=== PATIENT | male | born 1935 | race Caucasian/White ===

== ENCOUNTER 2023-12-02 01:29 | Inpatient (IN) | payer BC, MEDICARE ==
[~2023-12-02] VITALS: Ht 185.4 cm; Wt 111.1 kg
[2023-12-02] VITALS (8 sets, daily range): BP systolic 128–151; BP diastolic 73–102; TEMP 98.2–98.6; O2SAT 55–99
[2023-12-02] MEDS ORDERED: ONDANSETRON HCL/PF 4 MG/2 ML VIAL ONE (01:41)
[2023-12-02] MEDS: ONDANSETRON HCL/PF 4 MG/2 ML VIAL IVP ONE (01:42)
[2023-12-02] MEDS: IV NS 0.9% 1,000 ML BAG IV ONE (01:52)
[2023-12-02 01:54] LABS: BASOPHILS % (AUTO) 0.4 % (0.0-2.0); EOSINOPHILS # (AUTO) 0.2 K/uL (0.0-0.7); EOSINOPHILS % (AUTO) 2.2 % (0.0-6.0); HEMATOCRIT 43 % (39-51); HEMOGLOBIN 14.2 g/dL (13.5-17.5); LYMPHOCYTES # (AUTO) 0.9 K/uL (0.8-4.8); LYMPHOCYTES % (AUTO) 10.8 % (20.0-44.0); MEAN CORPUSCULAR HEMOGLOBIN 31 PG (26.0-33.0); MEAN CORPUSCULAR HGB CONC 33 g/dl (31.0-36.0); MEAN CORPUSCULAR VOLUME 93 fL (80-96); MONOCYTES # (AUTO) 0.6 K/uL (0.1-1.30); MONOCYTES % (AUTO) 7.5 % (2.0-12.0); NEUTROPHILS # (AUTO) 6.9 K/uL (1.8-8.9); NEUTROPHILS % (AUTO) 79.1 % (43.0-81.0); PLATELET COUNT (AUTO) 201 K/uL (150-450); RED BLOOD CELL COUNT(AUTO) 4.65 MIL/uL (4.5-6.0); RED CELL DISTRIBUTION WIDTH 14.3 % (11.5-15.0); WHITE BLOOD COUNT (AUTO) 8.7 K/uL (4.3-11.0)
[2023-12-02 02:04] LABS: CALCIUM, SERUM 8.8 mg/dL (8.5-10.1); CARBON DIOXIDE 25 mmol/L (21-32); CHLORIDE 101 mmol/L (98-107); CREATININE 1.2 mg/dL (0.6-1.3); GLUCOSE 216 mg/dL (74-106); POTASSIUM 4.4 mmol/L (3.5-5.1); SODIUM SERUM 134 mmol/L (136-145); UREA NITROGEN, BLOOD 40 mg/dL (7-18)
[2023-12-02 02:10] LABS: ALANINE AMINOTRANSFERASE 41 U/L (12-78); ALBUMIN 3.5 g/dL (3.4-5.0); ALKALINE PHOSPHATASE 66 U/L (46-116); ASPARTATE AMINOTRANSFERASE 17 U/L (15-37); BILIRUBIN,DIRECT 0.1 mg/dL (0.0-0.2); BILIRUBIN,TOTAL 0.3 mg/dL (0.2-1.0); LIPASE 54 U/L (16-77); TOTAL PROTEIN, SERUM 7.6 g/dL (6.4-8.2)
[2023-12-02] MEDS ORDERED: MAGNESIUM HYDROXIDE 30 ML UDC PO PRN (03:30)
[2023-12-02] MEDS ORDERED: ACETAMINOPHEN 325 MG TABLET PO PRN (03:30)
[2023-12-02] MEDS ORDERED: ONDANSETRON HCL/PF 4 MG/2 ML VIAL IVP PRN (03:30)
[2023-12-02] MEDS ORDERED: MAG HYDROX/AL HYDROX/SIMETH 30 ML UDC PO PRN (03:30)
[2023-12-02] MEDS ORDERED: Z GUARD REMEDY 4 OZ OINT TP PRN (03:30)
[2023-12-02 04:14] LABS: THYROID STIMULATING HORMONE 6.26 uIU/mL (0.358-3.74)
[2023-12-02] MEDS ORDERED: TERB250T52 PO (07:35)
[2023-12-02] MEDS: PANTOPRAZOLE 40 MG TABLET.DR PO SCH (09:00)
[2023-12-02] MEDS: LOSARTAN POTASSIUM 50 MG TABLET PO SCH (15:59)
[2023-12-03] VITALS: BP 125/73; TEMP 98.2; O2SAT 90
[2023-12-03 04:00] VITALS: BP 130/61; TEMP 98.3; O2SAT 97
[2023-12-03 09:36] VITALS: BP 160/85
== END 2023-12-03 13:15 | disposition home or self-care (01) | DRG 641 ==
LOC: ER 01:33 → TELE 07:40 → MED 12-03 10:24
PROVIDERS: ADMIT Nurse Practitioner Acute Care; ATTEND Nurse Practitioner Acute Care
DX: E86.0 Dehydration (principal); I50.32 Chronic diastolic (congestive) heart failure; E11.65 Type 2 diabetes mellitus with hyperglycemia; I11.0 Hypertensive heart disease with heart failure; E03.8 Other specified hypothyroidism; Z79.899 Other long term (current) drug therapy; M19.90 Unspecified osteoarthritis, unspecified site; Z98.890 Other specified postprocedural states; E66.9 Obesity, unspecified; Z68.32 Body mass index [BMI] 32.0-32.9, adult; E73.9 Lactose intolerance, unspecified; R94.6 Abnormal results of thyroid function studies; F03.90 Unspecified dementia, unspecified severity, without behavioral disturbance, psychotic disturbance, mood disturbance, and anxiety; G47.33 Obstructive sleep apnea (adult) (pediatric)
CPT/HCPCS: 36415; 71045-TC; 80048-TC; 80076-TC; 83690-TC; 83880; 84439-TC; 84443-TC; 84484-TC; 85025-TC; 93307-TC; G0378; J2405